=== PATIENT | female | born 1980 | race African-American/Black ===

== ENCOUNTER 2016-10-28 21:01 | Emergency (ER) | payer OTHER ==
[~2016-10-28 21:01] MED LIST: BUSPIRONE HCL15 MG PO; GEODON40 MG PO; HUMALOG SC; LEVAQUIN750 MG PO; LEVEMIR VI100 UNITS/ SC; LOPRESSOR50 MG PO; LOSARTAN-HCTZ1 EACH PO; LOVASTATIN40 MG PO; METRONIDAZOLE500 MG PO; WELLBUTRIN SR150 MG PO; XARELTO20 MG PO
[2016-10-28 21:59] LABS: BASOPHIL 0.3 % (0-2); HCT 40.6 % (37.0-47.0); HGB 14.5 g/dl (12.5-16.0); LYMPHOCYTE 39.1 % (15-48); MCH 31.3 pg (25.0-31.0); MCHC 35.7 g/dL (32.0-36.0); MCV 87.5 fL (78.0-100.0); MONOCYTE 7.7 % (0-12); MPV 10.7 fL (6.0-9.5); NEUTROPHIL 50.9 % (41-80); PLT 371 K/uL (150-400); RBC 4.64 M/uL (4.20-5.40); RDW 12.5 % (11.5-14.0); WBC 6.9 K/uL (4.0-10.5)
[2016-10-28 22:08] LABS: ALBUMIN 4.1 g/dL (3.5-5.0); BILIRUBIN - TOTAL 0.2 mg/dL (0.1-1.0); CREATININE 0.8 mg/dL (0.5-1.0); GLOBULIN (CALCULATION) 2.9 g/dL (2.2-4.2); POTASSIUM 3.7 mmol/L (3.5-5.1)
[2016-10-28 22:14] LABS: ACETAMINOPHEN (TYLENOL) < 5.0 ug/mL (10.0-30.0); ALCOHOL (ETOH) MEDICAL NONE DETECTED; SALICYLATE < 6 ug/mL (0-300)
[2016-10-28 23:02] LABS: BILIRUBIN NEGATIVE (NEGATIVE); BLOOD NEGATIVE Ery/uL (NEGATIVE); CLARITY HAZY (CLEAR); COLOR YELLOW (YELLOW); GLUCOSE (U) 3+ mg/dL (NORMAL); KETONE (U) TRACE mg/dL (NEGATIVE); LEUKOCYTES NEGATIVE Leu/uL (NEGATIVE); NITRITE NEGATIVE (NEGATIVE); PROTEIN 1+ mg/dL (NEGATIVE); SPECIFIC GRAVITY 1.025 (1.001-1.030); UROBILINOGEN 0.2 mg/dL (0.2-1.0)
[2016-10-28 23:15] LABS: AMORPHOUS URATES CRYSTALS TRACE; BACTERIA 1+; SQUAMOUS EPITHELIAL CELLS >50
[2016-10-28 23:17] LABS: AMPHETAMINES NEGATIVE (NEGATIVE); BARBITURATES NEGATIVE (NEGATIVE); BENZODIAZEPINES NEGATIVE (NEGATIVE); COCAINE NEGATIVE (NEGATIVE); MARIJUANA (THC) NEGATIVE (NEGATIVE); METHADONE NEGATIVE (NEGATIVE); TRICYCLIC ANTIDEPRESSANT NEGATIVE (NEGATIVE)
== END 2016-10-28 23:25 | disposition home or self-care (01) ==
LOC: FER 21:01
PROVIDERS: Emergency Medicine Emergency Medical Services
DX: F41.1 Generalized anxiety disorder (principal); F32.9 Major depressive disorder, single episode, unspecified; Z86.73 Personal history of transient ischemic attack (TIA), and cerebral infarction without residual deficits
CPT/HCPCS: 36415; 80053; 80305; 81001; 85025; 93005; G0480

== ENCOUNTER 2016-10-29 23:06 | Emergency (ER) | payer OTHER | END 2016-10-30 02:12 | disposition home or self-care (01) | LOC: FER 23:06 | DX: S00.83XA Contusion of other part of head, initial encounter (principal); E11.9 Type 2 diabetes mellitus without complications; I10 Essential (primary) hypertension; F17.200 Nicotine dependence, unspecified, uncomplicated; Z79.84 Long term (current) use of oral hypoglycemic drugs; Z79.4 Long term (current) use of insulin; Z79.899 Other long term (current) drug therapy; Y04.2XXA Assault by strike against or bumped into by another person, initial encounter; Y07.59 Other non-family member, perpetrator of maltreatment and neglect | CPT/HCPCS: 70450; 70486 ==

== ENCOUNTER 2021-03-07 14:18 | Emergency (ER) | payer OTHER ==
[2021-03-07 16:19] LABS: BILIRUBIN NEGATIVE (NEGATIVE); BLOOD NEGATIVE Ery/uL (NEGATIVE); CLARITY CLEAR (CLEAR); COLOR YELLOW (YELLOW); GLUCOSE (U) 2+ mg/dL (NORMAL); LEUKOCYTES NEGATIVE Leu/uL (NEGATIVE); NITRITE NEGATIVE (NEGATIVE); PROTEIN NEGATIVE (NEGATIVE); SPECIFIC GRAVITY 1.015 (1.001-1.030); pH 7.5 (5.0-9.0)
[2021-03-07 16:23] LABS: BASOPHIL 0.5 % (0-2); EOSINOPHIL 2.9 % (0-5); HCT 40.9 % (37.0-47.0); LYMPHOCYTE 45.2 % (15-48); MCH 28.6 pg (25.0-31.0); MCHC 31.8 g/dL (32.0-36.0); MCV 89.9 fL (78.0-100.0); MONOCYTE 6.9 % (0-12); MPV 10.5 fL (6.0-9.5); NEUTROPHIL 44.3 % (41-80); NRBC 0; PLT 354 K/uL (150-400); RBC 4.55 M/uL (4.20-5.40); RDW 13.7 % (11.5-14.0); WBC 5.5 K/uL (4.0-10.5)
[2021-03-07 16:40] LABS: PRO-BNP 802 pg/mL (<125)
[2021-03-07 16:42] LABS: ALBUMIN 3.2 g/dL (3.4-5.0); BILIRUBIN - TOTAL 0.3 mg/dL (0.2-1.0); BUN/CREAT RATIO (CALC) 10.7 RATIO; CREATININE 0.75 mg/dL (0.51-0.95); GLOBULIN (CALCULATION) 3.8 g/dL; POTASSIUM 4.2 mmol/L (3.5-5.1)
== END 2021-03-07 18:57 | disposition home or self-care (01) ==
LOC: FER 14:18
PROVIDERS: Emergency Medicine
DX: M79.89 Other specified soft tissue disorders (principal); I10 Essential (primary) hypertension; E11.9 Type 2 diabetes mellitus without complications; F17.210 Nicotine dependence, cigarettes, uncomplicated; Z86.73 Personal history of transient ischemic attack (TIA), and cerebral infarction without residual deficits
CPT/HCPCS: 36415; 71045; 80053; 81003; 83880; 84443; 84484; 85025; 85379; 93005; 93970